=== PATIENT | female | born 1975 | race Caucasian/White ===

== ENCOUNTER 2016-11-23 16:25 | Emergency (ER) | payer OTHER ==
[~2016-11-23] VITALS: Ht 152.4 cm; Wt 81.2 kg
[~2016-11-23 16:25] MED LIST: BUPR8TAB3 PO; HYDR-4452 PO
[2016-11-23 17:22] VITALS: BP 140/91
--- NOTE | 2016-11-23 17:49 | NUR ---
LABS DRAWN IN TRIAGE---PATIENT PRESENTS TO ED WITH CONTINUES SANGUINEOUS DRAINAGE FROM BIOPSY SITE TOP PALATE . PT STATES . DENIES N/V/D; SKIN IS PINK/WARM/DRY; AAOX4 WITH EVEN AND STEADY GAIT; LUNGS CLEAR BL; HR EVEN AND REGULAR; PT DENIES ANY FEVER, CP, SOB, OR COUGH AT THIS TIME; PATIENT STATES PAIN OF 05/10 AT THIS TIME; VSS; PATIENT POSITIONED FOR COMFORT; HOB ELEVATED; BEDRAILS UP X2; BED DOWN. ER MD MADE AWARE OF PT STATUS.
[2016-11-23 18:12] LABS: HEMATOCRIT 36.3 % (36-48); HEMOGLOBIN 11.7 g/dL (12.0-16.0)
[2016-11-23] MEDS ORDERED: SILVER NITRATE APPLICATOR 1 EA SWAB TP ONE (19:30)
--- NOTE | 2016-11-23 19:42 | NUR ---
PATIENT AMBULATED TO ER OF2
--- NOTE | 2016-11-23 19:45 | NUR ---
Patient being evaluated by physician.
[2016-11-23] MEDS ORDERED: ONDANSETRON 4 MG/2 ML VIAL IM ONE (20:15)
[2016-11-23] MEDS ORDERED: HYDROmorphone 1 MG/ML AMP IM ONE (20:15)
[2016-11-23 21:05] VITALS: BP 124/72
--- NOTE | 2016-11-23 21:05 | NUR ---
Patient discharged with v/s stable. Written and verbal after care instructions given and explained. Patient verbalized understanding. Ambulatory with steady gait. All questions addressed prior to discharge. Advised to follow up with PMD.
== END 2016-11-23 21:05 | disposition home or self-care (01) ==
LOC: MED 16:25
DX: K91.840 Postprocedural hemorrhage of a digestive system organ or structure following a digestive system procedure (principal); Z88.0 Allergy status to penicillin
CPT/HCPCS: 36415; 85018; 96372; 99284; J1170; J2405